=== PATIENT | female | born 1955 | race Caucasian/White ===

== ENCOUNTER 2016-12-25 13:21 | Inpatient (IN) ==
[2016-12-25] MEDS ORDERED: SODIUM CHLORIDE 0.9% 1,000 ML IV STA (14:00)
[2016-12-25 14:22] LABS: Basophils # 0.1 10*3/uL (0.0-0.2); Basophils % 0.9 % (0.0-0.8); Eosinophils # 0.3 10*3/uL (0.0-0.87); Eosinophils % 3.3 % (0.00-10.9); Hematocrit 41.1 VOL% (35.7-47.0); Hemoglobin 13.9 GM/DL (12.0-16.0); Immature Granulocytes % 0.2 %; Immature Granulocytes Absolute 0.02 #; Lymphocytes % 30.2 % (21.3-54.2); Mean Corpuscular HGB Conc 33.8 GM/DL (32-36); Mean Corpuscular Hemoglobin 30 PG (27-34); Mean Corpuscular Volume 87.4 FL (87-102); Mean Platelet Volume 9.4 FL (9.6-12.0); Monocytes # 0.8 10*3/uL (0.11-0.8); Monocytes % 7.9 % (1.7-12.7); Neutrophils # 5.7 10*3/uL (1.4-7.4); Neutrophils % 57.5 % (38.7-73.9); Platelet Count 357 T/CUMM (130-400); Red Cell Distribution Width 12.8 % (9.3-17.3)
[2016-12-25 14:54] LABS: Albumin 3.3 G/DL (3.4-5.0); Bilirubin,Total 0.5 MG/DL (0.2-1.0); Calcium 9.3 MG/DL (8.5-10.1); Osmolality,Calculated 274.5 MOS/KG (273-304); Potassium 4.1 MMOL/L (3.5-5.1); Total Protein 7.4 G/DL (6.4-8.3)
[2016-12-25] MEDS ORDERED: ONDANSETRON 4 MG/2 ML VIAL IV PRN (16:24)
[2016-12-25] MEDS ORDERED: MORPHINE 2 MG/1 ML SYRINGE IV PRN (16:24)
[2016-12-25] MEDS ORDERED: ACETAMINOPHEN 325 MG TABLET PO PRN (16:24)
[2016-12-25] MEDS ORDERED: NALOXONE 0.4 MG/ML VIAL IV PRN (16:24)
--- NOTE | 2016-12-25 16:24 | Emergency Department Note ---
Liliana Gillette Brittany, am scribing for, and in the presence of, Ollie Awad MD 14:11. Ritesh Gillette Doug C, MD, personally performed the services described in this documentation, ascribed by Brenda Ford in my presence, and it is both accurate and complete [id number] . Arrival - Arrival Chief Complaint: Nausea/Vomiting/Diarrhea Stated Complaint: stomach ache and diarrhea for 2wks ED Nursing Triage Note: C/o generalized abd cramping and diarrhea-onset two weeks ago. Denies N/V Mode of Arrival: Ambulatory Limitations: No Limitations Source: Patient Time Seen by Provider: 12/25/16 13:59 - History of Present Illness HPI Narrative: Patient 59 white female comes emergency room today being tormented by persistent diarrhea. Patient states this been going on now for over a month. She states that every time she eats she has profuse diarrhea approximately an hour and half afterwards. Patient states she has cramping abdominal pain that she was in her diarrhea and then her pain subsides after defecation. She has not seen any blood or mucus in her stool. She has not had any fever chills and she denies nausea or vomiting. Patient states she gets quite hungry but knows that when she eats she is soon to have diarrhea. She does have a past medical history of colitis years ago and she tells me it was unspecified colitis at that time. She has tried antidiarrheal medications with no improvement. She is not having any pain at present. Onset (ago): week(s) (Started 2 weeks ago) Consistency: constant Severity: moderate Date of Last Menstrual Period: hysterectomy Allergies/Adverse Reactions: Allergies Allergy/AdvReac Type Severity Reaction Status Date / Time Cefaclor [From Ceclor] Allergy RASH Verified 11/19/14 15:18 codeine Allergy Verified 02/18/15 08:19 Home Medications: Home Medications Medication Instructions Recorded Confirmed Type Aspirin [Ecotrin] 325 mg PO DAILY 11/19/14 12/25/16 History Atenolol [Tenormin] 100 mg PO DAILY 11/19/14 12/25/16 History Atorvastatin [Lipitor] 20 mg PO DAILY 11/19/14 12/25/16 History Desipramine HCl [Desipramine HCl] 50 mg PO TID 11/19/14 12/25/16 History LORazepam TAB [Ativan Tab] 1 mg PO TID 11/19/14 12/25/16 History Lansoprazole [Prevacid] 30 mg PO BID 11/19/14 12/25/16 History Diphenoxylate/Atrop 2.5-0.025 1 tablet PO Q6H PRN 12/25/16 12/25/16 History [Lomotil Tab] Metformin HCl [Metformin HCl ER] 500 mg PO DAILY 12/25/16 12/25/16 History amLODIPine [Norvasc] 5 mg PO DAILY 12/25/16 12/25/16 History Review of System - Review of System Constitutional: Absent: chills, fever Eyes: Absent: pain Head/Ears/Nose/Throat: Absent: earache, nasal drainage Respiratory: Absent: cough, respiratory distress Cardiovascular: Absent: chest pain, palpitations Gastrointestinal: Present: abdominal pain, diarrhea. Absent: nausea, vomiting, hematochezia Genitourinary female: Absent: dysuria, frequency, urgency Musculoskeletal: Absent: back pain, neck pain Skin: Absent: rash, lesions Neurological: Absent: headache, weakness Psychiatric: Absent: anxiety, depression Endocrine: Absent: fatigue, polydipsia, polyuria Hematological/Lymphatic: Absent: easy bleeding, easy bruising Medical,Surgical,& Family Hx - Medical History Cardio: History of: Hypertension, [place], Cardiovascular Problems (murmur) Psychological: History of: Anxiety Disorders Neurology: No history of: Seizures HEENT: History of: Eye Problem (glasses) Endocrine: History of: Diabetes Mellitus (NIDDM) Rheumatology: History of;: Rheumatoid Arthritis Gastrointestinal: History of: Diverticulitis/ Diverticulosis, GERD, Hemorrhoids , Polyps, GI Problems (hiatal hernia, ulcerative esophagus) Musculoskeletal: History of: Back/Neck Problems (protruding/slipped disk), Herniated Disk Hematology: History of: Blood Transfusion Reaction, Clotting Problems (dvt in foot) Other: History of: Anesthesia Reactions (nausea), Skin Problems (rash to left axilla, right and left forearms) - Surgical History Cardiac Surgeries: Sugical HX of: Cardiac Catheterization, Cardiac Surgery ( cabg 2006) HEENT Surgeries: Surgical HX of: Tonsilectomy & Adenoidectomy Abdominal Surgeries: Surgical HX of: Appendectomy, Cholecystectomy, Colonoscopy (2002), EGD Reproductive Surgeries: Surgical HX of;: Hysterectomy Orthopedic Surgeries: Patient denies;: Orthopedic Surgery - Family History Family History: noncontributory - Social History Smoking Status: Never smoker Frequency of Alcohol Use: None Type of Drug Use: None Exam Vital Signs: Vital Signs Temperature 97.8 F 12/25/16 13:24 Pulse Rate 71 12/25/16 13:24 Respiratory Rate 16 12/25/16 13:24 Blood Pressure 132/66 12/25/16 13:24 O2 Sat by Pulse Oximetry 100 12/25/16 13:24 - General Exam limited due to: other (Lower abdomen exam only ) General appearance: alert, in no apparent distress - Head Head exam: Present: normocephalic - Eye Eye exam: Present: PERRL, EOMI - ENT ENT exam: Present: normal exam, mucous membranes moist - Neck Neck exam: Present: normal inspection - Respiratory Respiratory exam: Present: normal lung sounds bilaterally. Absent: rales, respiratory distress - Cardiovascular Cardiovascular exam: Present: regular rate, normal rhythm, normal heart sounds - Abdominal Exam Abdominal exam: Present: soft, tenderness (Lower abdominial tenderness), normal bowel sounds. Absent: distention, guarding, rebound - Extremities Exam Extremities exam: Present: normal inspection - Back Exam Back exam: Present: normal inspection - Neurological Exam Neurological exam: Present: alert, oriented X3 - Psychiatric Psychiatric exam: Present: normal affect Course Course Narrative: Patient's clinical presentation, laboratory and radiograph findings were discussed with Dr. Brigid Vogel and patient will be admitted for further evaluation. Results - Labs CBC & BMP: 12/25/16 14:20 12/25/16 14:20 Lab Results: I have reviewed the patients labs Labs: Laboratory Tests 12/25/16 12/25/16 12/25/16 14:15 14:20 14:20 WBC 10.0 RBC 4.70 Hgb 13.9 Hct 41.1 MCV 87.4 MCH 30 MCHC 33.8 RDW 12.8 Plt Count 357 MPV 9.4 L Neut % (Auto) 57.5 Lymph % (Auto) 30.2 [place] % (Auto) 7.9 Eos % (Auto) 3.3 Baso % (Auto) 0.9 H Neut # (Auto) 5.7 Lymph # (Auto) 3.0 [place] # (Auto) 0.8 Eos # (Auto) 0.3 Baso # (Auto) 0.1 Immature Gran % 0.2 Nucleated RBC % 0.0 Immature Gran # 0.02 Nucleated RBCs # 0.00 Immature Plt Fraction 0.0 ESR Westergren 55 H Sodium 139 Potassium 4.1 Chloride 104 Carbon Dioxide 26 Anion Gap 13.1 BUN 8 Creatinine 1.00 GFR Calculation 67 BUN/Creatinine Ratio 8.00 Glucose 93 Calculated Osmolality 274.5 Calcium 9.3 Total Bilirubin 0.50 AST 22 ALT 24 Alkaline Phosphatase 137 H C-Reactive Protein Total Protein 7.4 Albumin 3.3 L Globulin 4.1 H Albumin/Globulin Ratio 0.8 L 12/25/16 14:20 WBC RBC Hgb Hct MCV MCH MCHC RDW Plt Count MPV Neut % (Auto) Lymph % (Auto) [place] % (Auto) Eos % (Auto) Baso % (Auto) Neut # (Auto) Lymph # (Auto) [place] # (Auto) Eos # (Auto) Baso # (Auto) Immature Gran % Nucleated RBC % Immature Gran # Nucleated RBCs # Immature Plt Fraction ESR Westergren Sodium Potassium Chloride Carbon Dioxide Anion Gap BUN Creatinine GFR Calculation BUN/Creatinine Ratio Glucose Calculated Osmolality Calcium Total Bilirubin AST ALT Alkaline Phosphatase C-Reactive Protein 0.69 H Total Protein Albumin Globulin Albumin/Globulin Ratio - Diagnostic Findings Procedure: CT Abdomen and Pelvis: report reviewed by me (Patient with diffuse colitis and attending inflammatory changes. Diverticulosis/diverticulitis also seen in sigmoid area) Disposition Clinical Impression: Acute colitis Case discussed with: patient, patient's family Disposition: Still a Patient Condition: Stable Time of Disposition: 16:24
--- NOTE | 2016-12-25 16:31 | CT Report ---
History: Abdominal cramping and diarrhea Date: 12/25/2016 Study: CT abdomen and pelvis with IV contrast Comparison exam: Noncontrast CT abdomen and pelvis November 19, 2014 Technique: Spiral CT sections were obtained from the lung bases to the pubic symphysis following oral contrast and 100 mL Omnipaque [address] exam was performed using one or more of the following dose reduction techniques: Automated exposure control, adjustment of the mA and/or kV according to patient size, or use of iterative reconstruction technique. CT abdomen: The partially visualized lung bases are generally clear. There is no gross pleural or pericardial effusion. There is no evidence of pneumoperitoneum. There are some occasional small scattered calcified granulomata in the spleen. There is mild diffuse fatty infiltration of the otherwise unremarkable liver. The gallbladder is surgically absent. The pancreas and adrenal glands are unremarkable. There is bilateral renal excretion without hydronephrosis. There is no focal renal mass or cyst. There is no aneurysm of the moderately calcified abdominal aorta. There is no lymphadenopathy by short axis diameter criteria. There are some occasional scattered diverticuli. There is diffuse wall thickening of the colon throughout its length. Small bowel is not definitely involved, though there is incomplete distention of the distal ileum, limiting evaluation. There is no abscess or other abnormal fluid collection. CT pelvis: The uterus is surgically absent. There is no soft tissue mass in the pelvis.. Impression: Diffuse colitis involving the entire length of the colon. Consider ulcerative colitis. Diverticulosis No acute process otherwise. Previous cholecystectomy PROCEDURE INTERPRETED AT [facility] DEPARTMENT OF RADIOLOGY Final Report Signed by: Dr. Karma Richardson
[2016-12-25] MEDS: ENOXAPARIN 40 MG/0.4 ML SYRINGE SUBCUT SCH ×2 (18:53→20:06)
[2016-12-25] MEDS: SODIUM CHLORIDE 0.45% 1,000 ML IV SCH ×2 (18:53→23:51)
[2016-12-25] MEDS: LORazepam 1 MG TABLET PO SCH (20:52)
[2016-12-25] MEDS: LEVOFLOXACIN INJ 500 MG in PREMIX 1 EACH IV SCH (22:52)
[2016-12-26] MEDS: SODIUM CHLORIDE 0.45% 1,000 ML IV SCH ×3 (05:22→19:48)
[2016-12-26 05:32] LABS: Basophils # 0.1 10*3/uL (0.0-0.2); Basophils % 1.1 % (0.0-0.8); Eosinophils # 0.4 10*3/uL (0.0-0.87); Eosinophils % 3.6 % (0.00-10.9); Hemoglobin 12.6 GM/DL (12.0-16.0); Immature Granulocytes % 0.3 %; Immature Granulocytes Absolute 0.03 #; Lymphocytes # 3.5 10*3/uL (1.4-4.0); Lymphocytes % 33.9 % (21.3-54.2); Mean Corpuscular HGB Conc 33.2 GM/DL (32-36); Mean Corpuscular Hemoglobin 29 PG (27-34); Mean Corpuscular Volume 87.6 FL (87-102); Mean Platelet Volume 9.8 FL (9.6-12.0); Monocytes # 0.9 10*3/uL (0.11-0.8); Monocytes % 8.2 % (1.7-12.7); Neutrophils # 5.5 10*3/uL (1.4-7.4); Neutrophils % 52.9 % (38.7-73.9); Platelet Count 333 T/CUMM (130-400); Red Blood Count 4.34 MC/CUMM (3.8-5.5); Red Cell Distribution Width 12.8 % (9.3-17.3); White Blood Count 10.4 T/CUMM (4-12)
--- NOTE | 2016-12-26 07:56 | Family Practice History&Phys ---
Assessment and Plan (1) Acute colitis Status: Acute Assessment and plan: 12/26/2016: IV antibiotics were begun at the time of admission. Patient's C. difficile was negative. 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 Wooten will be consulted. Current Visit: Yes History of Present Illness Chief complaint: Diarrhea and abdominal pain History of present illness: Ms. Weir is a 61 year old female Patient is a 61-year-old white female who presented to the emergency room on the day of admission with persistent diarrhea and abdominal pain. Patient states this has been going on for 2-4 weeks and just slowly getting worse. She has not had any fever or chills associated with it. And she has not seen any blood in her stool. Patient states that her pain generally begins about an hour after eating and she has profuse watery diarrhea at that point. Patient states she has abdominal cramping which is eventually relieved by defecation. Patient states is very reminiscent of about she had years ago when she had nonspecific colitis. She has not had any nausea vomiting or loss of appetite. Patient was seen in the emergency room and found to have diffuse colitis on CT scan. She was admitted for further evaluation. Stool studies revealed negative C. difficile. Home Medications Medication Instructions Recorded Confirmed Type Aspirin [Ecotrin] 325 mg PO DAILY 11/19/14 12/25/16 History Atenolol [Tenormin] 100 mg PO DAILY 11/19/14 12/25/16 History Atorvastatin [Lipitor] 20 mg PO DAILY 11/19/14 12/25/16 History Desipramine HCl [Desipramine HCl] 50 mg PO TID 11/19/14 12/25/16 History LORazepam TAB [Ativan Tab] 1 mg PO TID 11/19/14 12/25/16 History Lansoprazole [Prevacid] 30 mg PO BID 11/19/14 12/25/16 History Diphenoxylate/Atrop 2.5-0.025 1 tablet PO Q6H PRN 12/25/16 12/25/16 History [Lomotil Tab] Metformin HCl [Metformin HCl ER] 500 mg PO DAILY 12/25/16 12/25/16 History amLODIPine [Norvasc] 5 mg PO DAILY 12/25/16 12/25/16 History Allergies Allergy/AdvReac Type Severity Reaction Status Date / Time Cefaclor [From [facility]] Allergy RASH Verified 11/19/14 15:18 codeine Allergy Verified 02/18/15 08:19 - Constitutional Constitutional: Present: fatigue, weakness. Absent: chills, fever(s) - EENT Eyes: Absent: blurry vision, loss of vision Ears: Absent: decreased hearing, ear pain Nose, mouth and throat: Absent: hoarseness, nasal congestion, sinus pressure, sore throat - Cardiovascular Cardiovascular: Absent: chest pain at rest, dyspnea, palpitations, PND - Respiratory Respiratory: Absent: cough, dyspnea on exertion, wheezing - Gastrointestinal Gastrointestinal: Present: abdominal pain, diarrhea. Absent: hematochezia, melena, nausea, vomiting - Genitourinary Genitourinary: Absent: difficulty urinating, urinary frequency, urinary hesitancy - Musculoskeletal Musculoskeletal: Absent: arthralgias, back pain - Neurological Neurological: Absent: confusion, dizziness, focal weakness, numbness, paresthesias - Psychiatric Psychiatric: Absent: anxiety, depression - Endocrine Endocrine: Present: fatigue. Absent: polydipsia, polyphagia - Hematologic/Lymphatic Hematologic/Lymphatic: Absent: easy bleeding, easy bruising Medical,Surgical,& Family Hx - Medical History Cardio: History of: Hypertension, [place], Cardiovascular Problems (murmur) Psychological: History of: Anxiety Disorders Neurology: No history of: Seizures HEENT: History of: Eye Problem (glasses) Endocrine: History of: Diabetes Mellitus (NIDDM) Rheumatology: History of;: Rheumatoid Arthritis Gastrointestinal: History of: Diverticulitis/ Diverticulosis, GERD, Hemorrhoids , Polyps, GI Problems (hiatal hernia, ulcerative esophagus) Musculoskeletal: History of: Back/Neck Problems (protruding/slipped disk), Herniated Disk Hematology: History of: Blood Transfusion Reaction, Clotting Problems (dvt in foot) Other: History of: Anesthesia Reactions (nausea), Skin Problems (rash to left axilla, right and left forearms) - Surgical History Cardiac Surgeries: Sugical HX of: Cardiac Catheterization, Cardiac Surgery ( cabg 2006) HEENT Surgeries: Surgical HX of: Tonsilectomy & Adenoidectomy Abdominal Surgeries: Surgical HX of: Appendectomy, Cholecystectomy, Colonoscopy (2002), EGD Reproductive Surgeries: Surgical HX of;: Hysterectomy Orthopedic Surgeries: Patient denies;: Orthopedic Surgery - Family History Family History: noncontributory - Social History Smoking Status: Former smoker Frequency of Alcohol Use: None Type of Drug Use: None Exam - Constitutional Vitals: Period Temp Pulse Resp BP Sys/Reid Pulse Ox Last 24 Hr 96.2 F-97.8 F 62-79 16-22 110-132/51-69 95-100 Exam: General: Objective patient is a well-developed white female in no acute distress. She is able to give a good history HEENT: Pupils equal and reactive to light. Patent nares and airway Neck: No meningismus, adenopathy, thyromegaly. There are no auscultated carotid bruits. Cardiovascular: Regular rhythm. No murmurs or gallops Chest: Clear to auscultation without rales rhonchi wheezes. Abdomen: Patient is noted to have mild diffuse tenderness directly but no masses , rebound, guarding or tenderness. Neuro: Cranial nerves intact and DTRs and strength symmetric in all extremities. Dermatologic: No evidence of abnormal lesions or masses. Musculoskeletal: There is no joint swelling or tenderness or deformity. Extremities: There is no calf swelling or tenderness. Results - Labs CBC & BMP: 12/26/16 04:43 12/25/16 14:20 Lab Results: I have reviewed the past 24 hour labs - Diagnostic Findings Procedure: CT Abdomen and Pelvis: report reviewed by me (Diffuse colitis)
[2016-12-26] MEDS ORDERED: ATENOLOL 100 MG TABLET PO SCH (09:00)
[2016-12-26] MEDS ORDERED: PANTOPRAZOLE 40 MG TABLET PO SCH (09:00)
[2016-12-26] MEDS ORDERED: ATORVASTATIN 20 MG TABLET PO SCH (09:00)
[2016-12-26] MEDS: amLODIPine 5 MG TABLET PO SCH (10:49)
[2016-12-26] MEDS: LORazepam 1 MG TABLET PO SCH ×3 (10:49→23:04)
--- NOTE | 2016-12-26 12:23 | Gastrointestinal Consult Note ---
<Yolanda Alexandre - Last Filed: 12/26/16 11:47> Assessment and Plan (1) Acute colitis Status: Acute Assessment and plan: 12/26-3 week history of abdominal pain and cramping with watery diarrhea. No reports of bleeding. Finding on CT scan of diffuse colitis throughout entire colon. Last C scope 2002 with nonspecific colitis. Plan for colonoscopy on tomorrow. Further plan an addendum follow Dr. Wooten. Current Visit: Yes History of Present Illness Chief complaint: Abdominal pain History of present illness: Ms. Weir is a 61 year old female who was admitted to the hospital on yesterday with 3 week history of watery diarrhea and abdominal pain. Pt states that approximately 3 weeks ago she was in her usual state of health however had an onset of some lower abdominal pain and cramping. She states this was followed by onset of watery diarrhea every time she ate. She states she was having a watery bowel movement approx 3-4 times per day however denies any nocturnal defection with this. She denies any melena or hematochezia. She states that this has persisted until she called Dr Awad last week and was given Lomotil which she states did not help. She then presented to the ER on yesterday for further evaluation. Pt states that she has had colitis in the past several years ago and this felt similar to that presentation. She denies any associated fever or chills. Denies any known weight loss. Denies any travel outside of the [place] or being around others who have been ill. Her last EGD was in 2014 with findings of esophagitis and stricture however her last C-[place] [address] Vincent with findings of diffuse colitis with pathology reported as self- limiting colitis. On admission, CT of abdomen with contrast was noted to show diffuse colitis throughout the entire length of the colon. No leukocytosis noted on admission and patient is afebrile. CRP is elevated at 0.69 Home Medications Medication Instructions Recorded Confirmed Type Aspirin [Ecotrin] 325 mg PO DAILY 11/19/14 12/25/16 History Atenolol [Tenormin] 100 mg PO DAILY 11/19/14 12/25/16 History Atorvastatin [Lipitor] 20 mg PO DAILY 11/19/14 12/25/16 History Desipramine HCl [Desipramine HCl] 50 mg PO TID 11/19/14 12/25/16 History LORazepam TAB [Ativan Tab] 1 mg PO TID 11/19/14 12/25/16 History Lansoprazole [Prevacid] 30 mg PO BID 11/19/14 12/25/16 History Diphenoxylate/Atrop 2.5-0.025 1 tablet PO Q6H PRN 12/25/16 12/25/16 History [Lomotil Tab] Metformin HCl [Metformin HCl ER] 500 mg PO DAILY 12/25/16 12/25/16 History amLODIPine [Norvasc] 5 mg PO DAILY 12/25/16 12/25/16 History Allergies Allergy/AdvReac Type Severity Reaction Status Date / Time Cefaclor [From [facility]] Allergy RASH Verified 11/19/14 15:18 codeine Allergy Verified 02/18/15 08:19 Medical,Surgical,& Family Hx - Medical History Cardio: History of: Hypertension, [place], Cardiovascular Problems (murmur) Psychological: History of: Anxiety Disorders Neurology: No history of: Seizures HEENT: History of: Eye Problem (glasses) Endocrine: History of: Diabetes Mellitus (NIDDM) Rheumatology: History of;: Rheumatoid Arthritis Gastrointestinal: History of: Diverticulitis/ Diverticulosis, GERD, Hemorrhoids , Polyps, GI Problems (hiatal hernia, ulcerative esophagus) Musculoskeletal: History of: Back/Neck Problems (protruding/slipped disk), Herniated Disk Hematology: History of: Blood Transfusion Reaction, Clotting Problems (dvt in foot) Other: History of: Anesthesia Reactions (nausea), Skin Problems (rash to left axilla, right and left forearms) - Surgical History Cardiac Surgeries: Sugical HX of: Cardiac Catheterization, Cardiac Surgery ( cabg 2006) HEENT Surgeries: Surgical HX of: Tonsilectomy & Adenoidectomy Abdominal Surgeries: Surgical HX of: Appendectomy, Cholecystectomy, Colonoscopy (2002), EGD Reproductive Surgeries: Surgical HX of;: Hysterectomy Orthopedic Surgeries: Patient denies;: Orthopedic Surgery - Social History Smoking Status: Former smoker Frequency of Alcohol Use: None Type of Drug Use: None 12 point system: reviewed and no additional remarkable complaints except as stated - Constitutional Constitutional: Present: as per HPI - EENT Eyes: Present: as per HPI Ears: Present: as per HPI Nose, mouth and throat: Present: as per HPI - Cardiovascular Cardiovascular: Present: as per HPI - Respiratory Respiratory: Present: as per HPI - Gastrointestinal Gastrointestinal: Present: as per HPI, abdominal pain, cramping, loose stools - Genitourinary Genitourinary: Present: as per HPI - Musculoskeletal Musculoskeletal: Present: as per HPI - Neurological Neurological: Present: as per HPI - Psychiatric Psychiatric: Present: as per HPI - Endocrine Endocrine: Present: as per HPI - Hematologic/Lymphatic Hematologic/Lymphatic: Present: as per HPI Exam - Constitutional Vitals: Period Temp Pulse Resp BP Sys/Reid Pulse Ox Last 24 Hr 96.2 F-97.8 F 62-79 16-22 110-132/51-69 95-100 General appearance: normal weight, no acute distress - Head Head exam: Present: normal inspection, normocephalic - Eye Eye exam: Present: other (Lids and conjunctive are unremarkable). Absent: scleral icterus - ENT ENT exam: Present: normal exam, normal oropharynx - Neck Neck exam: Present: normal inspection - Respiratory Respiratory exam: Present: clear to auscultation bilaterally. Absent: rales, rhonchi, wheezes - Cardiovascular Cardiovascular exam: Present: regular rate and rhythm. Absent: diastolic murmur , JVD, systolic murmur - GI/Abdominal GI/Abdominal exam: Present: normal bowel sounds, soft. Absent: ascites, distended, mass, organomegaly, tenderness - Extremities Exam Extremities exam: Present: normal inspection, full ROM - Back Exam Back exam: Present: normal inspection - Neurological Exam Neurological exam: Present: alert, oriented X3 - Psychiatric Psychiatric exam: Present: normal affect, normal mood - Skin Skin exam: Present: normal color, warm, dry Results - Labs CBC & BMP: 12/26/16 04:43 12/25/16 14:20 Lab Results: I have reviewed the past 24 hour labs - Diagnostic Findings Procedure: CT Abdomen and Pelvis: report reviewed by me <David Wooten - Last Filed: 12/26/16 21:13> History of Present Illness Chief complaint: 3030 History of present illness: Ms. Weir is a 61 year old female Exam - Constitutional Vitals: Period Temp Pulse Resp BP Sys/Reid Pulse Ox Last 24 Hr 96.2 F-97.5 F 72-92 18-22 110-127/51-68 95-100 Results - Labs CBC & BMP: 12/26/16 04:43 12/25/16 14:20
[2016-12-26] MEDS ORDERED: BISACODYL 5 MG TABLET PO ONE (13:00)
--- NOTE | 2016-12-26 13:47 | EKG Report ---
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
[2016-12-26] MEDS ORDERED: POLYETHYLENE GLYCOL POWDER 255 GM BOTTLE PO ONE (14:00)
[2016-12-26] MEDS: metroNIDAZOLE INJ 500 MG in PREMIX 1 EACH IV SCH ×2 (14:42→23:09)
[2016-12-26] MEDS ORDERED: MAGNESIUM CITRATE 300 ML BOTTLE PO ONE (21:00)
[2016-12-26] MEDS: ENOXAPARIN 40 MG/0.4 ML SYRINGE SUBCUT SCH (23:02)
[2016-12-26] MEDS: ATENOLOL 100 MG TABLET PO SCH (23:03)
[2016-12-26] MEDS: DESIPRAMINE 25 MG TABLET PO SCH (23:03)
[2016-12-26] MEDS: ATORVASTATIN 20 MG TABLET PO SCH (23:04)
[2016-12-26] MEDS: LEVOFLOXACIN INJ 500 MG in PREMIX 1 EACH IV SCH (23:12)
[2016-12-27] MEDS: SODIUM CHLORIDE 0.45% 1,000 ML IV SCH ×3 (04:52→17:11)
[2016-12-27] MEDS: metroNIDAZOLE INJ 500 MG in PREMIX 1 EACH IV SCH ×3 (06:19→23:06)
--- NOTE | 2016-12-27 07:00 | Family Practice Progress Note ---
Family Practice - PN: Subj Interval history: Patient states she has had a good night and her abdominal pain and diarrhea has subsided somewhat. She has not had any fever or chills. Her stool culture and blood cultures and C. difficile are all negative. She certainly does not appear to have an infectious colitis. She is scheduled for colonoscopy today. Exam (Progress Note) - Constitutional Vitals: Period Temp Pulse Resp BP Sys/Reid Pulse Ox Last 24 Hr 96.5 F-97.6 F 73-92 18-20 108-127/51-60 96-100 Exam: Objective a well-developed white female no acute distress. She is able give good history. She appears comfortable. Cardiovascular: Heart rates regular without murmurs or gallops. Respiratory: The lungs clear to auscultation bilaterally. Abdomen: Abdomen soft and minimally tender to palpation. Bowel sounds were normoactive. Results - Labs CBC & BMP: 12/26/16 04:43 12/25/16 14:20 Lab Results: I have reviewed the past 24 hour labs Assessment and Plan (1) Acute colitis Status: Acute Assessment and plan: 12/26/2016: IV antibiotics were begun at the time of admission. Patient's C. difficile was negative. Her regular leasing professional is Dr. Wooten will be consulted. 12/27/2016: Patient is clinically improved, certainly does not appear to have an infectious colitis and will undergo colonoscopy today. Current Visit: Yes
[2016-12-27] MEDS: amLODIPine 5 MG TABLET PO SCH (08:40)
[2016-12-27] MEDS: DESIPRAMINE 25 MG TABLET PO SCH ×4 (10:01→23:06)
[2016-12-27] MEDS: LORazepam 1 MG TABLET PO SCH ×4 (10:01→23:07)
--- NOTE | 2016-12-27 11:13 | History and Physical Update ---
History and Physical Update - Physical Exam Mental Status: alert and oriented Heart: regular rate and rhythm Lung: clear to auscultation Abdomen: within normal limits Vitals: within normal limits
--- NOTE | 2016-12-27 11:15 | Operative Note ---
Date of procedure: 12/27/16 Pre-op diagnosis: Colitis on abnormal CT Procedure: Colonoscopy with biopsy 61-year-old female who was admitted with complaints of diarrhea CT suggesting diffuse colitis. She is now for colonoscopy to further evaluate. Informed consent was obtained the patient She was sedated with MAC anesthesia per anesthesia Protocol. Patient placed left lateral decubitus position digital exam revealed no rectal masses the Olympus flexible video colonoscope was inserted and canal advanced under direct vision level cecum identify obvious ago valve appendiceal orifice. Withdrawal time 10 minutes Prep fair to good Findings: Cecum-identified by ileocecal valve and appendiceal orifice otherwise normal. Terminal ileum-normal Ascending colon-normal Transverse colon-normal Descending colon-diverticulosis otherwise normal Sigmoid colon-moderate diverticulosis with focal area of scarring otherwise normal. Rectum-normal to direct retroflexed views. No evidence of colitis was seen random biopsies were taken. The procedure was terminated placed our procedure well she is discharged recovery in good condition. Postop diagnosis: 1. Diverticulosis coli-maintain adequate fiber and fluid intake 2. Abnormal CT-no corresponding findings on colonoscopy were identified. Random biopsies were taken for possible microscopic colitis. Will follow up path when available. 3. Continue supportive care. Anesthesia: MAC Surgeon / Physician: David Wooten Estimated blood loss: none Specimens: other (Random colon biopsies possible microscopic colitis) Condition: stable Disposition: post procedure unit Results - Labs CBC & BMP: 12/26/16 04:43 12/25/16 14:20 Discharge Plan - Discharge Medications No Action Atorvastatin [Lipitor] 20 mg PO DAILY Atenolol [Tenormin] 100 mg PO DAILY Aspirin [Ecotrin] 325 mg PO DAILY Lansoprazole [Prevacid] 30 mg PO BID LORazepam TAB [Ativan Tab] 1 mg PO TID Desipramine HCl [Desipramine HCl] 50 mg PO TID amLODIPine [Norvasc] 5 mg PO DAILY Diphenoxylate/Atrop 2.5-0.025 [Lomotil Tab] 1 tablet PO Q6H PRN PRN Reason: Diarrhea Metformin HCl [Metformin HCl ER] 500 mg PO DAILY - Follow Up or Referral - Forms/Instructions
--- NOTE | 2016-12-27 11:20 | Anesthesia Post-Op ---
Anesthesia Post OP - Post Ansesthetic Evaluation Patient seen in post op: Yes Resp: within normal limits CV: within normal limits Mental: within normal limits Temp: within normal limits [id number]: within normal limits Nausea and Vomiting: within normal limits Pain: within normal limits
[2016-12-27] MEDS: ATENOLOL 100 MG TABLET PO SCH (23:07)
[2016-12-27] MEDS: ENOXAPARIN 40 MG/0.4 ML SYRINGE SUBCUT SCH (23:07)
[2016-12-27] MEDS: ATORVASTATIN 20 MG TABLET PO SCH (23:07)
[2016-12-27] MEDS: LEVOFLOXACIN INJ 500 MG in PREMIX 1 EACH IV SCH (23:09)
[2016-12-28] MEDS: SODIUM CHLORIDE 0.45% 1,000 ML IV SCH (02:09)
[2016-12-28] MEDS: metroNIDAZOLE INJ 500 MG in PREMIX 1 EACH IV SCH (06:11)
--- NOTE | 2016-12-28 07:11 | Discharge Summary ---
Hospital Course - Hospital Course Hospital Course: Patient 59-year-old white female presented emergency room day of admission with persistent diarrhea and abdominal pain. CT of the abdomen emergency room revealed patient have evidence of pancolitis with diffuse swelling of her of her colon from the cecum all the way to the rectosigmoid. She did have diverticular disease as well. Laboratory studies reveal elevated sed rate 55 but relatively normal CRP. Stool culture was obtained as was C. difficile both which proved to be negative. She was seen in consultation by Dr. David Wooten and underwent colonoscopy on 12/27/2016 which revealed no particular finding. Biopsies were made. Patient does have a past medical history of microscopic colitis not certain suspicion that this may be her diagnosis again. Patient's diarrhea subsided with IV Flagyl and her abdominal pain is also markedly improved. She will be discharged home today in follow-up in the office in 2 weeks time. Her biopsies of course are pending. Diagnosis - Discharge Diagnosis (1) Acute colitis Status: Acute Discharge Plan - Discharge Data Disposition: Disch To Home/Self Care Condition at Discharge: Stable Discharge Diet: advance to your usual diet Activity: resume usual activities as tolerated Hygiene: no restrictions Weight Bearing at Discharge: full weight bearing Driving: no restrictions Contact your physician if you experience:: fever over 101 - Discharge Medications New Desipramine [Norpramin] 50 mg PO TID tablet metroNIDAZOLE TAB [Flagyl Cap/Tab] 500 mg PO BID #20 tablet Continue Atorvastatin [Lipitor] 20 mg PO DAILY Atenolol [Tenormin] 100 mg PO DAILY Lansoprazole [Prevacid] 30 mg PO BID LORazepam TAB [Ativan Tab] 1 mg PO TID amLODIPine [Norvasc] 5 mg PO DAILY Metformin HCl [Metformin HCl ER] 500 mg PO DAILY Discontinued Diphenoxylate/Atrop 2.5-0.025 [Lomotil Tab] 1 tablet PO Q6H PRN PRN Reason: Diarrhea No Action Aspirin [Ecotrin] 325 mg PO DAILY Desipramine HCl [Desipramine HCl] 50 mg PO TID - Follow Up or Referral Follow Up: Ollie Awad MD [Emergency Provider] - 2 Weeks - Forms/Instructions Exam - Constitutional Vitals: Period Temp Pulse Resp BP Sys/Reid Pulse Ox Last 24 Hr 96.7 F-98.5 F 65-83 15-20 106-140/53-76 95-99 Exam: Objective a well-developed white female no acute distress. She is able give good history. She appears comfortable. Cardiovascular: Heart rates regular without murmurs or gallops. Respiratory: The lungs clear to auscultation bilaterally. Abdomen: Abdomen soft and nontender to palpation. Bowel sounds were normoactive. Discharge Results Procedures and tests throughout hospitalization: Pending Orders 12/25/16 19:08 Occult Blood, Stool Stat 12/25/16 19:30 Blood Culture Stat Labs on day of discharge: Preliminary micro results at discharge 12/25/16 19:30 Blood Culture - Preliminary Blood No growth at 1 day 12/25/16 19:30 Blood Culture - Preliminary Blood No growth at 1 day Normal DS: Provider Date of admission: 12/25/16 16:24 Primary care physician: . No PCP Attending physician on admission: Ollie Awad MD Consults: 12/25/16 16:24 Consult to Case Mgmt/Social Srvs [CONS] Routine Reason for Case Mgmt/Social Srvs: Discharge Planning 12/25/16 16:26 Consult to Physician [CONS] Routine Comment: Consulting Provider: David Wooten Discharging clinician: Ollie Awad MD Expected date of discharge: 12/28/16
[2016-12-28 07:53] VITALS: BP 113/68
[2016-12-28] MEDS: amLODIPine 5 MG TABLET PO SCH (08:10)
[2016-12-28] MEDS: LORazepam 1 MG TABLET PO SCH (08:10)
[2016-12-28] MEDS: DESIPRAMINE 25 MG TABLET PO SCH (08:10)
--- NOTE | 2016-12-28 10:03 | Gastrointestinal Progress Note ---
<Ximena Alexandreher Franklin - Last Filed: 12/28/16 10:01> Assessment and Plan (1) Acute colitis Status: Acute Assessment and plan: 12/28-C scope findings noted. No further reports of diarrhea or abdominal pain. Tolerating diet well. For discharge home today. Will be discharged home on oral Flagyl. Colonoscopy biopsies are pending. Plan an addendum to follow by Dr. Wooten. 12/26-3 week history of abdominal pain and cramping with watery diarrhea. No reports of bleeding. Finding on CT scan of diffuse colitis throughout entire colon. Last C scope 2002 with nonspecific colitis. Plan for colonoscopy on tomorrow. Further plan an addendum follow Dr. Wooten. Gastroenterology - PN: Subj Interval history: CC: Colitis Patient is seen awake alert sitting up in bed with spouse at side. States she had an uneventful night and is feeling better. She is noted to be for discharge home today. She is tolerating her diet well and denies any abdominal pain, nausea or vomiting. C scope on yesterday noted to show diverticulosis with random biopsy still pending this morning. Abdomen is soft, nontender. She is no longer having diarrhea stools and is noted to be discharged home on oral Flagyl. She was also recommended, per patient, to hold her metformin for several more days to see if her diarrhea continues to stop. ROS: Denies shortness of breath or chest pain Exam (Progress Note) - Constitutional Vitals: Period Temp Pulse Resp BP Sys/Reid Pulse Ox Last 24 Hr 96.7 F-98.5 F 65-83 15-20 106-140/53-76 95-99 General appearance: normal weight, no acute distress - Head Head exam: Present: normal inspection, normocephalic - Eye Eye exam: Present: other (Lids and conjunctivae are unremarkable). Absent: scleral icterus - ENT ENT exam: Present: normal exam, normal oropharynx - Neck Neck exam: Present: normal inspection - Respiratory Respiratory exam: Present: clear to auscultation bilaterally. Absent: rales, rhonchi, wheezes - Cardiovascular Cardiovascular exam: Present: regular rate and rhythm. Absent: diastolic murmur , JVD, systolic murmur - GI/Abdominal GI/Abdominal exam: Present: normal bowel sounds, soft. Absent: ascites, distended, mass, organomegaly, tenderness - Extremities Exam Extremities exam: Present: normal inspection, full ROM - Back Exam Back exam: Present: normal inspection - Neurological Exam Neurological exam: Present: alert, oriented X3 - Psychiatric Psychiatric exam: Present: normal affect, normal mood - Skin Skin exam: Present: normal color, warm, dry Results - Labs CBC & BMP: 12/26/16 04:43 12/25/16 14:20 Lab Results: I have reviewed the past 24 hour labs Specialty Discharge - Follow Up or Referrals Follow up with: Ollie Awad MD [Emergency Provider] - 2 Weeks <David Wooten - Last Filed: 12/28/16 22:54> Exam (Progress Note) - Constitutional Vitals: Period Temp Pulse Resp BP Sys/Reid Pulse Ox Last 24 Hr 96.7 F-97.7 F 65-80 18-20 106-113/61-68 98-99 Results - Labs CBC & BMP: 12/26/16 04:43 12/25/16 14:20
--- NOTE | 2016-12-28 17:16 | Pathology Report from [facility] ---
[facility] ACCESSION # : [id number] PATIENT NAME : Sylvie Weir ORDERING DR : DAVIDE VIZCARRA MD CLINICAL HX: Diarrhea POST-OP DX: Possible microscopic colitis SPECIMEN INFO: Random colon biopsy GROSS DESCRIPTION: The specimen is received in formalin labeled with the patients name and consists of fragments of calvillo mucosal tissue measuring 0.7 x 0.5 cm. Submitted in one cassette. DIAGNOSIS FOR SYLVIE WEIR: RANDOM COLON BIOPSIES: Superficial chronic inflammation, focal superficial neutrophilic debris. No evidence of inflammatory bowel disease, lymphocytic/collagenous colitis, ischemic changes, pseudomembrane, or malignancy. Tryptase stain negative. Consider self-limited colitis. COLLECTED DATE: 12/27/2016 [facility] REPORT DATE: 12/28/2016 ELECTRONICALLY SIGNED BY: Rafaela Thibodeaux M.D. 12/28/2016 - 12:57:44 [email or web address]
== END 2016-12-28 12:08 | disposition home or self-care (01) | DRG 392 ==
LOC: N.ED 13:21 → N.EDINP 16:24 → N.2E 18:31
PROVIDERS: ADMIT Family Medicine; ATTEND Family Medicine
PROC: COLONBX (2016-12-27 09:35)

== ENCOUNTER 2019-08-15 11:23 | Observation (INO) ==
[2019-08-15] MEDS ORDERED: LACTATED RINGERS 1,000 ML IV ONE (12:01)
[2019-08-15 12:26] LABS: Basophils # 0.1 10*3/uL (0.0-0.2); Basophils % 0.6 % (0.0-0.8); Eosinophils # 0.1 10*3/uL (0.0-0.87); Eosinophils % 0.5 % (0.00-10.9); Hematocrit 39.7 VOL% (35.7-47.0); Hemoglobin 12.2 GM/DL (12.0-16.0); Immature Granulocytes % 0.5 %; Immature Granulocytes Absolute 0.08 #; Lymphocytes # 1.6 10*3/uL (1.4-4.0); Lymphocytes % 9.8 % (21.3-54.2); Mean Corpuscular HGB Conc 30.7 GM/DL (32-36); Mean Corpuscular Volume 85.2 FL (87-102); Mean Platelet Volume 9.4 FL (9.6-12.0); Monocytes % 4.7 % (1.7-12.7); Neutrophils % 83.9 % (38.7-73.9); Platelet Count 378 T/CUMM (130-400); Red Blood Count 4.66 MC/CUMM (3.8-5.5); Red Cell Distribution Width 16.9 % (9.3-17.3); White Blood Count 16.6 T/CUMM (4-12)
[2019-08-15 12:51] LABS: Bilirubin,Total 0.7 MG/DL (0.2-1.0); Calcium 9.2 MG/DL (8.5-10.1); Osmolality,Calculated 271.7 MOS/KG (273-304); Total Protein 7.8 G/DL (6.4-8.3)
[2019-08-15] MEDS ORDERED: CYCLOBENZAPRINE 10 MG TABLET PO STA (13:29)
[2019-08-15] MEDS ORDERED: metroNIDAZOLE INJ 500 MG in PREMIX 1 EACH IV STA (13:32)
[2019-08-15] MEDS ORDERED: CIPROFLOXACIN INJ 400 MG in PREMIX 1 EACH IV STA (13:33)
[2019-08-15] MEDS ORDERED: CIPROFLOXACIN 400 MG/200 ML PREMIX IV ONE (13:38)
[2019-08-15] MEDS ORDERED: metroNIDAZOLE 500 MG/100 ML PREMIX IV ONE (13:38)
[2019-08-15] MEDS ORDERED: ONDANSETRON 4 MG/2 ML VIAL IV PRN (14:01)
[2019-08-15 14:34] LABS: Apearance,Urine Slightly Hazy (Clear); Bacteria,Urine Occasional /HPF (Few); Bilirubin,Urine Negative (Negative); Blood, Urine Negative (Negative); Glucose,Urine (UA) >=500 mg/dL (Negative); Hyaline Casts,Urine 11 /LPF (0-3); Ketones,Urine Negative (Negative); Mucus,Urine Occasional /LPF (Occasional); Nitrite,Urine Positive (Negative); Protein,Urine Negative; RBC,Urine 5 /HPF (0-4); Squamous Epithelial Cell,Urine Occasional /HPF (0-10); Urine Color Yellow (Yellow); Urine Specific Gravity 1.008 (1.001-1.035); Urine Urobilinogen < 2.0 EU/DL (0.2-1.0); WBC,Urine 42 /HPF (0-6)
[2019-08-15] MEDS: MEROPENEM 500 MG in SODIUM CHLORIDE 0.9% 100 ML IV SCH ×2 (17:56→23:44)
[2019-08-15] MEDS: SODIUM CHLORIDE 0.9% 1,000 ML IV SCH (18:47)
[2019-08-15] MEDS: metroNIDAZOLE INJ 500 MG in PREMIX 1 EACH IV SCH (22:07)
[2019-08-16] MEDS: ACETAMINOPHEN 325 MG TABLET PO PRN ×2 (04:25→22:49)
[2019-08-16] MEDS: SODIUM CHLORIDE 0.9% 1,000 ML IV SCH ×3 (04:27→22:51)
[2019-08-16 05:29] LABS: Basophils # 0.1 10*3/uL (0.0-0.2); Basophils % 0.7 % (0.0-0.8); Eosinophils # 0.3 10*3/uL (0.0-0.87); Eosinophils % 2.2 % (0.00-10.9); Hematocrit 35.6 VOL% (35.7-47.0); Hemoglobin 10.8 GM/DL (12.0-16.0); Immature Granulocytes % 0.5 %; Immature Granulocytes Absolute 0.07 #; Lymphocytes # 4.4 10*3/uL (1.4-4.0); Lymphocytes % 30.4 % (21.3-54.2); Mean Corpuscular HGB Conc 30.3 GM/DL (32-36); Mean Corpuscular Volume 85.2 FL (87-102); Mean Platelet Volume 9.5 FL (9.6-12.0); Monocytes % 6.2 % (1.7-12.7); Platelet Count 342 T/CUMM (130-400); Red Blood Count 4.18 MC/CUMM (3.8-5.5); Red Cell Distribution Width 17.1 % (9.3-17.3); White Blood Count 14.6 T/CUMM (4-12)
[2019-08-16] MEDS ORDERED: NITROGLYCERIN SL 0.4 MG TABLET SL PRN (05:32)
[2019-08-16] MEDS: metroNIDAZOLE INJ 500 MG in PREMIX 1 EACH IV SCH ×3 (05:39→22:50)
[2019-08-16] MEDS: MEROPENEM 500 MG in SODIUM CHLORIDE 0.9% 100 ML IV SCH ×3 (05:40→16:16)
[2019-08-16 05:58] LABS: Albumin 2.7 G/DL (3.4-5.0); Bilirubin,Total 0.8 MG/DL (0.2-1.0); Calcium 8.4 MG/DL (8.5-10.1); Total Protein 6.5 G/DL (6.4-8.3)
[2019-08-16 05:59] LABS: Osmolality,Calculated 277.5 MOS/KG (273-304)
[2019-08-16] MEDS ORDERED: LANSOPRAZOLE 15 MG PO SCH (09:00)
[2019-08-16] MEDS ORDERED: DESIPRAMINE 10 MG PO SCH (09:00)
[2019-08-16] MEDS: LOSARTAN 25 MG TABLET PO SCH (09:03)
[2019-08-16] MEDS: ISOSORBIDE MONONITRATE 60 MG TABLET PO SCH (09:03)
[2019-08-16] MEDS: predniSONE 5 MG TABLET PO SCH (09:03)
[2019-08-16] MEDS: amLODIPine 5 MG TABLET PO SCH (09:03)
[2019-08-16] MEDS: ASPIRIN 325 MG TABLET PO SCH (09:03)
[2019-08-16] MEDS: PANTOPRAZOLE 40 MG TABLET PO SCH (09:04)
[2019-08-16] MEDS: GABAPENTIN 100 MG CAPSULE PO SCH ×2 (09:04→20:16)
[2019-08-16] MEDS: LORazepam 1 MG TABLET PO PRN ×3 (09:07→22:49)
[2019-08-16] MEDS: CHOLESTYRAMINE/ASPARTAME 4 GM PACK PO SCH ×2 (14:30→20:16)
[2019-08-16] MEDS ORDERED: atenoloL 50 MG TABLET PO SCH (19:00)
[2019-08-16] MEDS ORDERED: ATORVASTATIN 20 MG TABLET PO SCH (19:00)
[2019-08-17] MEDS: MEROPENEM 500 MG in SODIUM CHLORIDE 0.9% 100 ML IV SCH ×2 (00:01→05:13)
[2019-08-17] MEDS: SODIUM CHLORIDE 0.9% 1,000 ML IV SCH (01:27)
[2019-08-17] MEDS: metroNIDAZOLE INJ 500 MG in PREMIX 1 EACH IV SCH (05:51)
[2019-08-17 08:50] VITALS: BP 135/58
[2019-08-17] MEDS: predniSONE 5 MG TABLET PO SCH (08:57)
[2019-08-17] MEDS: amLODIPine 5 MG TABLET PO SCH (08:57)
[2019-08-17] MEDS: GABAPENTIN 100 MG CAPSULE PO SCH (08:57)
[2019-08-17] MEDS: CHOLESTYRAMINE/ASPARTAME 4 GM PACK PO SCH (08:57)
[2019-08-17] MEDS: ISOSORBIDE MONONITRATE 60 MG TABLET PO SCH ×2 (08:57→08:59)
[2019-08-17] MEDS: LOSARTAN 25 MG TABLET PO SCH (08:57)
[2019-08-17] MEDS: ASPIRIN 325 MG TABLET PO SCH (08:57)
[2019-08-17] MEDS: PANTOPRAZOLE 40 MG TABLET PO SCH (09:29)
== END 2019-08-17 11:00 | disposition home or self-care (01) ==
LOC: N.EDINP 11:23 → N.ED 11:23 → N.EDINP 15:18 → N.3E 15:43
PROVIDERS: ADMIT Family Medicine; ATTEND Family Medicine